=== PATIENT | male | born 1980 | race Caucasian/White ===

== ENCOUNTER 2017-11-09 01:38 | Emergency (ER) | payer OTHER ==
[~2017-11-09] VITALS: Ht 190.5 cm; Wt 126.0 kg
[2017-11-09] MEDS ORDERED: PERCOCET 5/31 TABLET PO (02:50)
[2017-11-09 02:55] VITALS: BP 100/77
== END 2017-11-09 03:43 | disposition home or self-care (01) ==
LOC: EME 01:38
DX: S43.121A Dislocation of right acromioclavicular joint, 100%-200% displacement, initial encounter (principal); W01.0XXA Fall on same level from slipping, tripping and stumbling without subsequent striking against object, initial encounter; F17.200 Nicotine dependence, unspecified, uncomplicated
CPT/HCPCS: 73030; 99281; 99283